=== PATIENT | male | born 1975 | race Caucasian/White ===

== ENCOUNTER 2022-03-07 14:11 | Emergency (ER) | payer SELFPAY ==
[2022-03-07 14:18] VITALS: BP 146/85; PULSE 60; RESP 18; TEMP 36.3; O2SAT 97; BMI 26.6
--- NOTE | 2022-03-07 16:10 | ED.GENADULT ---
HPI - General Adult General Chief complaint: Abdominal Pain Stated complaint: Possible hernia, stomach pain Time Seen by Provider: 03/07/22 15:58 Source: patient History of Present Illness HPI narrative: This 46-year-old male comes in with concern of a bulge that occurs in his upper central abdomen when doing a sit-up. He does not report any pain. He has noticed this over the past month when he has become more intentionally physically active. This protuberance occurs only when firing his abdominal muscles when sitting up from a laying position. He does not produce it in any other manner. Again he does not have any pain. He does not report any nausea, vomiting, lightheadedness, or shortness of breath. He he does have some constipation over these past several days. Related Data Home Medications Medication Instructions Recorded Confirmed omeprazole 40 mg capsule,delayed 40 mg PO DAILY 03/07/22 03/07/22 release Allergies Allergy/AdvReac Type Severity Reaction Status Date / Time No Known Drug Allergies Allergy Verified 03/07/22 14:29 Review of Systems Status of ROS: Reports: 10 or more systems reviewed and unremarkable except as noted in History and below Const: Denies: fever or chills Eyes: Denies: change in vision ENMT: Denies: throat pain, neck pain, throat swelling, difficulty swallowing, ear pain or nasal congestion Cardio: Denies: chest pain, palpitations, shortness of breath with exertion or shortness of breath when lying down Resp: Denies: shortness of breath, cough or chest congestion GI: Denies: abdominal pain, nausea, vomiting, diarrhea or difficulty swallowing : Denies: painful urination, urinary frequency or blood in urine Musculo: Denies: back pain, neck pain, extremity pain or extremity swelling Integ/Breast: Denies: rash or itching Neuro: Denies: headache, numbness in extremities, weakness in extremities or dizziness Psych: Denies: anxiety or suicidal ideation Endo: Denies: excessive urination or excessive thirst Roldan/Lymph: Denies: easy bruising, easy bleeding or enlarged lymph nodes Allergy/Immuno: Denies: hives, throat swelling or tongue swelling Exam Const: Vital Signs, click to edit/add: Vital Signs - 24 hr 03/07/22 14:18 Temperature 97.4 F L Pulse Rate [Right Radial] 60 Respiratory Rate 18 Blood Pressure [Ri ght Upper Arm] 146/85 H Pulse Oximetry 97 Common normals: no apparent distress and oriented x3 General appearance: cooperative and comfortable Orientation/consciousness: Yes awake HENMT: Common normals: normocephalic and external nose normal Head and scalp: normal to inspection and normocephalic Face and sinus: normal facial exam Nose: external nose normal Mouth: oral and palatal mucosa normal Eye: Common normals: PERRL and EOMs intact bilaterally General eye: normal appearance of both eyes Visual acuity: acuity normal Alignment: alignment normal Pupil: PERRL Neck & C-Spine: Common normals: full ROM General: normal visual inspection Cervical spine: cervical ROM normal Lymph: Lymphatic: no lymphadenopathy noted Chest: Common normals: inspection of chest normal Resp: Common normals: normal respiratory effort, no use of accessory muscles and clear to auscultation bilaterally Effort & inspection: able to speak in complete sentences Auscultation: clear to auscultation bilaterally Cardio: Common normals: regular rate, regular rhythm, no murmurs and peripheral pulses 2+ throughout Rate: regular rate Rhythm: regular rhythm Peripheral pulses: pulses 2+ throughout GI: Common normals: Normal to inspection, nondistended, normoactive bowel sounds present and non-tender Other: Abdominal exam is normal. The patient did lay flat and did a partial sit-up at which time there is a small bulge that occurs at midline. He does also have a small umbilical hernia. This to appears to be a a diasthesis that presents when firing his rectus abdominus muscles. : Common normals: no CVA tenderness Bladder/kidney exam: no CVA tenderness Back & Pelvis: Common normals: no CVA tenderness and thoracic and lumbar spine normal to inspection Thoracic spine/upper back: normal to inspection Lumbar spine/lower back: normal to inspection Extremity: Common normals: normal to inspection and full ROM Neuro: Common normals: oriented x3, CN's II-XII intact bilaterally and no focal motor deficits Sensorium/orientation: awake Speech: speech normal Psych: Common normals: mental status grossly normal Skin: Common normals: no rashes or lesions noted and skin turgor normal General skin exam: no rashes or lesions noted and turgor normal Course Vital Signs Vital signs: Initial Vital Signs Temperature 97.4 F L 03/07/22 14:18 Temperature Source Temporal Artery Scan 03/07/22 14:18 Pulse Rate 60 03/07/22 14:18 Respiratory Rate 18 03/07/22 14:18 Blood Pressure 146/85 H 03/07/22 14:18 Blood Pressure Mean 105 03/07/22 14:18 Blood Pressure Position Sitting 03/07/22 14:18 Pulse Oximetry 97 03/07/22 14:18 Oxygen Delivery Method 03/07/22 14:18 Vital Signs Temperature 97.4 F L 03/07/22 14:18 Pulse Rate 60 03/07/22 14:18 Respiratory Rate 18 03/07/22 14:18 Blood Pressure 146/85 H 03/07/22 14:18 Pulse Oximetry 97 03/07/22 14:18 Temperature 97.4 F L 03/07/22 14:18 Pulse Rate 60 03/07/22 14:18 Respiratory Rate 18 03/07/22 14:18 Blood Pressure 146/85 H 03/07/22 14:18 Pulse Oximetry 97 03/07/22 14:18 Medical Decision Making MDM Narrative Medical decision making narrative: This patient comes in with concern about a possible hernia in his upper mid abdomen. He does have a small umbilical hernia that is asymptomatic. He does also have what appears to be a diasthesis of the rectus abdominus musculature when doing a sit-up only. I did discuss lab and imaging options with the patient which she declined in a process of shared decision making. He was reassured to know my opinion about this matter. I did describe signs and symptoms that would indicate a need for return and re-evaluation. Discharge Plan Discharge Clinical Impression: Hernia, umbilical Condition: Stable Instructions: Umbilical Hernia (ED) Additional Instructions: Umbilical hernia and diathesis when stress abdominal musculature. Continue current plans. Follow up with MD as needed. Prescriptions: No Action omeprazole 40 mg capsule,delayed release(DR/EC) 40 mg PO DAILY 0RF Follow Up/Referrals: Johny Wesley MD [Staff Physician] - Stand Alone Forms: [employer] ([employer] Info Instructions
== END 2022-03-07 16:41 | disposition home or self-care (01) ==
PROVIDERS: Emergency Provider Emergency Medicine Emergency Medical Services
DX: K42.9 Umbilical hernia without obstruction or gangrene (principal)
CPT/HCPCS: 99282; 99283